=== PATIENT | male | born 1950 | race Caucasian/White ===

== ENCOUNTER 2018-03-24 11:58 | Emergency (ER) | payer MEDICARE, OTHER ==
[2018-03-24 13:17] VITALS: BP 127/67
[2018-03-24] MEDS ORDERED: Bacitracin Oint 1 GM U/D Packet TOP ONE (13:29)
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
== END 2018-03-24 14:10 | disposition home or self-care (01) ==
LOC: JP.ED 11:58
DX: S01.81XA Laceration without foreign body of other part of head, initial encounter (principal); Z79.899 Other long term (current) drug therapy; W22.8XXA Striking against or struck by other objects, initial encounter; Y99.0 Civilian activity done for income or pay
CPT/HCPCS: 12013; 99283-25